=== PATIENT | male | born 1980 | race Two or more races ===

== ENCOUNTER 2021-02-07 02:07 | Emergency (ER) | payer OTHER ==
[~2021-02-07] VITALS: Ht 182.9 cm; Wt 83.6 kg
--- NOTE | 2021-02-07 02:48 | EKG ---
[facility] [address] [place] [address] Test Date: 2021-02-07 Test Time: 02:11:23 Pat Name: EDWARD MEZA Department: Room: Gender: M Financial Investment Manager: : 1980 Requested By: DAVID BHATT Order Number: [id number] Reading MD: Measurements Intervals [place] Rate: 79 P: 36 MN: 126 QRS: 72 QRSD: 98 T: 29 QT: 372 QTc: 428 Interpretive Statements SINUS RHYTHM OTHERWISE NORMAL ECG RI6.02 No previous ECG available for comparison
[2021-02-07 03:13] LABS: BASO % 0 % (0-3); EOS # 0.4 x10^3/uL (0.0-0.7); EOS % 3 % (0-3); HEMATOCRIT 36.2 % (39.0-53.0); HEMOGLOBIN 11.9 g/dL (13.0-17.5); LYMPH # 2.1 x10^3/uL (1.0-4.8); LYMPH % 17 % (24-48); MEAN CORPUSCULAR HEMOGLOBIN 26 pg (25-35); MEAN CORPUSCULAR HGB CONC 33 g/dL (31-37); MEAN CORPUSCULAR VOLUME 79 fL (79-100); MONO # 0.6 x10^3/uL (0.0-1.1); MONO % 5 % (0-9); NEUT # 9.9 x10^3/uL (1.8-7.7); NEUT % 76 % (31-73); PLATELET COUNT 326 x10^3/uL (140-400); RED BLOOD COUNT 4.61 x10^6/uL (4.30-5.70); RED CELL DISTRIBUTION WIDTH 14.2 % (11.5-14.5)
[2021-02-07 03:25] LABS: CALCIUM 8.6 mg/dL (8.5-10.1); GFR 82.8; POTASSIUM 3.3 mmol/L (3.5-5.1)
[2021-02-07 03:30] LABS: ALBUMIN 3.7 g/dL (3.4-5.0); ALBUMIN/GLOBULIN RATIO 1.1 (1.0-1.7); MAGNESIUM 1.9 mg/dL (1.8-2.4); TOTAL BILIRUBIN 0.1 mg/dL (0.2-1.0); TOTAL PROTEIN 7.1 g/dL (6.4-8.2)
--- NOTE | 2021-02-07 04:11 | PHYS DOC ---
General Adult EDM: Chief Complaint: SYNCOPE HPI: HPI: Patient is a 40 year old male with history of HTN who presents with palpitations and syncope. Patient states that he has been feeling frequent very brief flutterings in his chest. He was sitting on a toilet and had had some upper abdominal cramping and was trying to have a bowel movement when he became lightheaded and diaphoretic. He felt like he was going to pass out so he stood up. This worsened the symptoms and he then vomited and then passed out. Since then he has been feeling slightly tired, but denies any further symptoms. States he tested positive for COVID on 01/28. He tested negative on repeat COVID test at 02/03. Review of Systems: Review of Systems: Constitutional: Denies fever or chills. [] Eyes: Denies change in visual acuity. [] HENT: Denies nasal congestion or sore throat. [] Respiratory: Denies cough or shortness of breath. [] Cardiovascular: Reports syncopal event. Denies chest pain or edema. [] GI: Reports nausea and vomiting. Denies bloody stools or diarrhea. [] : Denies dysuria. [] Musculoskeletal: Denies back pain or joint pain. [] Integument: Denies rash. [] Neurologic: Denies headache, focal weakness or sensory changes. [] Endocrine: Denies polyuria or polydipsia. [] Lymphatic: Denies swollen glands. [] Psychiatric: Denies depression or anxiety. [] Heart Score: C/O Chest Pain: No Risk Factors: Risk Factors: DM, Current or recent (<one month) smoker, HTN, HLP, family history of CAD, obesity. Risk Scores: Score 0 - 3: 2.5% MACE over next 6 weeks - Discharge Home Score 4 - 6: 20.3% MACE over next 6 weeks - Admit for Clinical Observation Score 7 - 10: 72.7% MACE over next 6 weeks - Early Invasive Strategies Physical Exam: PE: Constitutional: Well developed, well nourished, no acute distress, non-toxic appearance. [] HENT: Normocephalic, atraumatic, bilateral external ears normal, oropharynx moist, no oral exudates, nose normal. [] Eyes: PERRLA, EOMI, conjunctiva normal, no discharge. [] Neck: Normal range of motion, no tenderness, supple, no stridor. [] Cardiovascular:Heart rate regular rhythm, no murmur [] Lungs & Thorax: Bilateral breath sounds clear to auscultation [] Abdomen: Bowel sounds normal, soft, no tenderness, no masses, no pulsatile masses. [] Skin: Warm, dry, no erythema, no rash. [] Back: No tenderness, no CVA tenderness. [] Extremities: No tenderness, no cyanosis, no clubbing, ROM intact, no edema. [] Neurologic: Alert and oriented X 3, normal motor function, normal sensory function, no focal deficits noted. [] Psychologic: Affect normal, judgement normal, mood normal. [] Current Patient Data: Labs: Laboratory Tests Test 02/07/21 02:20 White Blood Count 13.0 x10^3/uL (4.0-11.0) H Red Blood Count 4.61 x10^6/uL (4.30-5.70) Hemoglobin 11.9 g/dL (13.0-17.5) L Hematocrit 36.2 % (39.0-53.0) L Mean Corpuscular Volume 79 fL (79-100) Mean Corpuscular Hemoglobin 26 pg (25-35) Mean Corpuscular Hemoglobin Concent 33 g/dL (31-37) Red Cell Distribution Width 14.2 % (11.5-14.5) Platelet Count 326 x10^3/uL (140-400) Neutrophils (%) (Auto) 76 % (31-73) H Lymphocytes (%) (Auto) 17 % (24-48) L Monocytes (%) (Auto) 5 % (0-9) Eosinophils (%) (Auto) 3 % (0-3) Basophils (%) (Auto) 0 % (0-3) Neutrophils # (Auto) 9.9 x10^3/uL (1.8-7.7) H Lymphocytes # (Auto) 2.1 x10^3/uL (1.0-4.8) Monocytes # (Auto) 0.6 x10^3/uL (0.0-1.1) Eosinophils # (Auto) 0.4 x10^3/uL (0.0-0.7) Basophils # (Auto) 0.0 x10^3/uL (0.0-0.2) Sodium Level 139 mmol/L (136-145) Potassium Level 3.3 mmol/L (3.5-5.1) L Chloride Level 105 mmol/L (98-107) Carbon Dioxide Level 26 mmol/L (21-32) Anion Gap 8 (6-14) Blood Urea Nitrogen 22 mg/dL (8-26) Creatinine 1.0 mg/dL (0.7-1.3) Estimated GFR (Cockcroft-Gault) 82.8 BUN/Creatinine Ratio 22 (6-20) H Glucose Level 144 mg/dL (70-99) H Calcium Level 8.6 mg/dL (8.5-10.1) Magnesium Level 1.9 mg/dL (1.8-2.4) Total Bilirubin 0.1 mg/dL (0.2-1.0) L Aspartate Amino Transferase (AST) 16 U/L (15-37) Alanine Aminotransferase (ALT) 28 U/L (16-63) Alkaline Phosphatase 126 U/L (46-116) H Troponin I Quantitative < 0.017 ng/mL (0.000-0.055) Total Protein 7.1 g/dL (6.4-8.2) Albumin 3.7 g/dL (3.4-5.0) Albumin/Globulin Ratio 1.1 (1.0-1.7) Laboratory Tests 02/07/21 02:20 Laboratory Tests 02/07/21 02:20 EKG: EKG: Sinus rhythm. Rate 79. Normal axis. Incomplete right bundle pattern, with QRS 98. Radiology/Procedures: Radiology/Procedures: [] Course & Med Decision Making: Course & Med Decision Making Pertinent Labs and Imaging studies reviewed. (See chart for details) Patient 40-year-old male with history of HTN who presents with a syncopal episode from home. Syncope does sound vasovagal, as it occurred with a bowel movement during bearing down. Patient recently recovered from COVID-19 infection, when he tested positive on 01/28. Given his recent infection, EKG with a incomplete right bundle pattern, D-dimer was ordered to attempt to exclude PE and was negative. Troponin is negative. Electrolytes normal. Telemetry has shown occasional PVCs, which do correlate with his palpitation symptoms. Telemetry has not shown any other evidence of arrhythmia. [id number] Disclaimer: Dragon Disclaimer: This electronic medical record was generated, in whole or in part, using a voice recognition dictation system. Departure Departure Impression: Primary Impression: Vasovagal syncope Disposition: HOME / SELF CARE / HOMELESS Condition: STABLE Referrals: NO PCP (PCP) Patient Instructions: Syncope Additional Instructions: Your work-up today was reassuring against strain against your heart, blood clot in your lungs, electrolyte problems, or serious heart rhythm problems. This is most likely a vasovagal syncopal episode, which is a benign cause of syn cope (passing out). If you develop chest pain, shortness of breath, recurrent syncopal episodes, fev er/chills, or other new/concerning symptoms please return to the emergency department for reevaluation. DAVID BHATT MD Feb 07, 2021 04:11
[2021-02-07 05:13] VITALS: BP 116/59
== END 2021-02-07 06:05 | disposition home or self-care (01) ==
LOC: ER 02:07
DX: R55 Syncope and collapse (principal); R00.2 Palpitations; R10.10 Upper abdominal pain, unspecified; I10 Essential (primary) hypertension; R42 Dizziness and giddiness
CPT/HCPCS: 36415; 80053; 83735; 84484; 85025; 85379; 93005; 99284